=== PATIENT | female | born 1955 | race Caucasian/White ===

== ENCOUNTER → 2019-11-30 | Outpatient (CLI) | payer OTHER | LOC: SJCVC 10:30 | DX: I11.9 Hypertensive heart disease without heart failure (principal); R94.31 Abnormal electrocardiogram [ECG] [EKG]; I48.0 Paroxysmal atrial fibrillation; R00.1 Bradycardia, unspecified; G47.33 Obstructive sleep apnea (adult) (pediatric); E66.01 Morbid (severe) obesity due to excess calories; E78.00 Pure hypercholesterolemia, unspecified; Z90.49 Acquired absence of other specified parts of digestive tract; Z96.651 Presence of right artificial knee joint; Z79.899 Other long term (current) drug therapy ==

== ENCOUNTER → 2020-10-11 | Outpatient (CLI) | payer OTHER | LOC: SJCVC 11:06 | PROVIDERS: ATTEND Internal Medicine | DX: I48.0 Paroxysmal atrial fibrillation (principal); R94.31 Abnormal electrocardiogram [ECG] [EKG]; I45.4 Nonspecific intraventricular block; E78.5 Hyperlipidemia, unspecified; I10 Essential (primary) hypertension; E66.01 Morbid (severe) obesity due to excess calories; G47.33 Obstructive sleep apnea (adult) (pediatric); Z79.899 Other long term (current) drug therapy ==

== ENCOUNTER → 2021-04-11 | Outpatient (CLI) | payer OTHER | LOC: SJCVCIMAG 09:08 | PROVIDERS: ATTEND Internal Medicine | DX: I08.1 Rheumatic disorders of both mitral and tricuspid valves (principal); I11.9 Hypertensive heart disease without heart failure; R94.31 Abnormal electrocardiogram [ECG] [EKG]; I44.4 Left anterior fascicular block; I48.0 Paroxysmal atrial fibrillation; I77.819 Aortic ectasia, unspecified site; E78.5 Hyperlipidemia, unspecified; E66.01 Morbid (severe) obesity due to excess calories; G47.33 Obstructive sleep apnea (adult) (pediatric); E78.00 Pure hypercholesterolemia, unspecified; Z90.49 Acquired absence of other specified parts of digestive tract; Z79.899 Other long term (current) drug therapy; Z82.49 Family history of ischemic heart disease and other diseases of the circulatory system ==

== ENCOUNTER → 2021-04-22 | Outpatient (CLI) | payer OTHER | LOC: SJCVC 13:06 | PROVIDERS: ATTEND Internal Medicine Cardiovascular Disease | DX: R94.31 Abnormal electrocardiogram [ECG] [EKG] (principal); I45.2 Bifascicular block; I48.0 Paroxysmal atrial fibrillation; I10 Essential (primary) hypertension; E66.9 Obesity, unspecified; Z68.41 Body mass index [BMI] 40.0-44.9, adult; G47.33 Obstructive sleep apnea (adult) (pediatric); E78.00 Pure hypercholesterolemia, unspecified; Z90.49 Acquired absence of other specified parts of digestive tract; Z79.899 Other long term (current) drug therapy; Z82.49 Family history of ischemic heart disease and other diseases of the circulatory system ==

== ENCOUNTER → 2021-05-16 | Outpatient (CLI) | payer OTHER ==
[~2021-05-16] VITALS: Ht 170.2 cm; Wt 127.0 kg
[~2021-05-16] MED LIST: BENICAR40 MG PO; CHLORTHALIDONE25 MG PO; ELIQUIS5 MG PO; FOSAMAX 70 MG T70 MG PO; TAMBOCOR 100 M100 M1 PO; VITAMIN D350 MCG PO
[2021-05-16 09:09] VITALS: BP 150/76
--- NOTE | 2021-05-16 11:07 | TEE ---
[facility] Porfirio Hernandez [facility] [place] [address] TRANSESOPHAGEAL ECHOCARDIOGRAM Name: AUDREY ALVAREZ Room #: REG [facility]#: [id number] Admission: 05/16/21 Attend Phys: Tank Zaldivar MD, Discharge: Date of : 51 Report #: [id number] THIS REPORT FOR: cc: Soha Damico MD, Paula V. MD Lundgren, Craig H. MD [facility] ~ APPROVED REPORT Study performed: 05/16/2021 09:14:52 EXAM: Transesophageal Echocardiogram with Doppler Patient Location: Out-Patient Room #: 9 Status: routine BSA: 2.33 HR: 57 bpm BP: 142/82 mmHg Rhythm: Atrial Fibrillation Other Information Study Quality: Technically Difficult Indications Atrial Fibrillation Echo Enhancing Agent Indication: Rule out Shunt Agent(s) / Amount(s) Used: Agitated Saline 7 cc Procedure After obtaining informed consent, patient underwent transesophageal echo in the EP Lab. Type of Sedation : Conscious Sedation Sedation was administered by Nurse. Sedation start time: 942 Case end Time: 946 Sedation was achieved intravenously with: Versed (4 mg) Fentanyl (50 mcg) Transesophageal probe was inserted and advanced into esophagus without difficulty by Tank Zaldivar MD. Echo enhancement indication: R/O Septal defect. Echo enhancement agent administered: Agitated Saline The JAMEE was performed without complications. Throughout the procedure, the blood pressure, pulse oximetry, cardiac rhythm, and rate were monitored. [facility] [address] [address] TRANSESOPHAGEAL ECHOCARDIOGRAM Name: AUDREY ALVAREZ Room #: REG [facility].#: [id number] Admission: 05/16/21 Attend Phys: Tank Zaldivar, Discharge: Date of : 51 Report #: [id number] The patient tolerated the procedure without adverse effects. Recovery from conscious sedation was uneventful and vital signs were stable. Left Ventricle The left ventricle is normal size. There is normal LV segmental wall motion. There is normal left ventricular wall thickness. The left ventricular systolic function is normal. The left ventricular ejection fraction is within the normal range. LVEF is 60-65%. Right Ventricle The right ventricle is normal size. The right ventricular systolic function is normal. Atria The left atrium size is normal. No thrombus is visualized in the left atrium or appendage. Prominent pectinate muscle Small PFO with [id number] shunting The right atrium size is normal. Aortic Valve The aortic valve is normal in structure. Trace aortic regurgitation. There is no aortic valvular stenosis. Mitral Valve The mitral valve is normal in structure. Mild mitral regurgitation. No evidence of mitral valve stenosis. Tricuspid Valve The tricuspid valve is normal in structure. Trace tricuspid regurgitation. Pulmonic Valve The pulmonary valve is normal in structure. There is no pulmonic valvular regurgitation. Great Vessels The aortic root is normal in size. IVC is normal in size and collapses >50% with inspiration. Pericardium There is no pericardial effusion. <Conclusion> The left ventricular systolic function is normal. There is normal LV segmental wall motion. LVEF is 60-65%. [facility] [address] [place] [address] TRANSESOPHAGEAL ECHOCARDIOGRAM Name: AUDREY ALVAREZ Room #: REG [facility]#: [id number] Admission: 05/16/21 Attend Phys: Tank Zaldivar, Discharge: Date of : 51 Report #: [id number] The left atrium size is normal. No thrombus is visualized in the left atrium or appendage. Prominent pectinate muscle Small PFO with [id number] shunting The aortic valve is normal in structure. Trace aortic regurgitation, no stenosis. The mitral valve is normal in structure. Mild mitral regurgitation. There is no pericardial effusion. <ELECTRONICALLY SIGNED> By: Tank Zaldivar MD, FACC 05/16/21 1106 1106 05 Tank Zaldivar MD, FACC /INF
== END | disposition home or self-care (01) ==
LOC: CATH 07:37
PROVIDERS: ATTEND Internal Medicine
DX: I48.91 Unspecified atrial fibrillation (principal); I08.3 Combined rheumatic disorders of mitral, aortic and tricuspid valves; I48.92 Unspecified atrial flutter; I10 Essential (primary) hypertension; G47.33 Obstructive sleep apnea (adult) (pediatric); E66.9 Obesity, unspecified; Z98.890 Other specified postprocedural states; Z79.899 Other long term (current) drug therapy; Z79.01 Long term (current) use of anticoagulants

== ENCOUNTER → 2021-05-19 | Outpatient (CLI) | payer OTHER ==
[2021-05-19 10:10] LABS: HEMATOCRIT 43.3 % (37.0-47.0); HEMOGLOBIN 14.6 gm/dL (12.0-15.0); MCH 31.8 pg (26.0-34.0); MCHC 33.6 g/dL (28.0-37.0); MCV 94.5 fL (80.0-100.0); RBC 4.58 mil/uL (4.20-5.00); RDW 12.9 % (10.5-14.5); WBC 5.1 thou/uL (4.0-11.0)
[2021-05-19 10:26] LABS: ALBUMIN 3.6 g/dL (3.4-5.0); TOTAL BILIRUBIN 0.4 mg/dL (0.2-1.0); TOTAL PROTEIN 7.6 g/dL (6.4-8.2)
== END ==
LOC: CAT 08:49
PROVIDERS: ATTEND Internal Medicine Cardiovascular Disease
DX: Z01.818 Encounter for other preprocedural examination (principal); I48.91 Unspecified atrial fibrillation; M47.814 Spondylosis without myelopathy or radiculopathy, thoracic region

== ENCOUNTER 2021-05-21 06:22 | Observation (INO) | payer OTHER ==
[~2021-05-21] VITALS: Ht 170.2 cm; Wt 128.8 kg
[2021-05-21 06:57] VITALS: BP 131/72
[2021-05-21 07:38] LABS: ABSOLUTE NEUTROPHILS 2.8 thou/uL (1.4-8.2); BASOPHILS 0.8 % (0.0-2.0); EOSINOPHILS 2.1 % (0.0-3.0); HEMATOCRIT 41.7 % (37.0-47.0); LYMPHOCYTES 29.5 % (24.0-44.0); MCH 31.6 pg (26.0-34.0); MCHC 33.6 g/dL (28.0-37.0); MCV 93.9 fL (80.0-100.0); MONOCYTES 9.1 % (1.0-8.0); PLATELET COUNT 201 thou/uL (150-400); POLYS 58.5 % (36.0-66.0); RBC 4.44 mil/uL (4.20-5.00); RDW 12.9 % (10.5-14.5); WBC 4.8 thou/uL (4.0-11.0)
[2021-05-21 07:47] LABS: CALCIUM 9.2 mg/dL (8.5-10.1); POTASSIUM 3.6 mmol/L (3.5-5.1)
[2021-05-21 07:53] LABS: APTT 26.9 Seconds (24.5-32.8); INR 0.98; PROTIME 10.7 Seconds (10.5-12.1)
[2021-05-21 07:54] LABS: ALBUMIN 3.6 g/dL (3.4-5.0); TOTAL BILIRUBIN 0.4 mg/dL (0.2-1.0); TOTAL PROTEIN 7.6 g/dL (6.4-8.2)
[2021-05-21 18:38] VITALS: BP 136/83
[2021-05-21 19:57] VITALS: BP 107/65
[2021-05-22 03:57] VITALS: BP 117/67
--- NOTE | 2021-05-22 07:48 | NUR ---
ASSUMED CARE OF PT AT 1900, PT IS A/O X4. ASSESSMENT COMPLETED NOTED. PT HAS RIGHT GROIN SITE INCISION TO BE MONITORED PER PROTOCOL. 2250 DRESSING FOUND TO HAVE INCREASED DRAINAGE, DRESSING CHANGED AND REASSESED. 0300 DRESSING NOTED TO HAVE SEROUS DRAINAGE, PRESSURE HELD, DRESSING CHANGED AND PT PLACED ON BED REST AND INSTRUCTED TO IMMOBILIZE THE LEFT LEG. NO REMAINING ISSUES NOTED. WILL CONTINUE TO WORK TOWARDS PT'S POC.
[2021-05-22 08:00] VITALS: BP 111/65
[2021-05-22 10:55] VITALS: BP 111/65
--- NOTE | 2021-05-22 11:08 | NUR ---
ASSESSMENT CHARTED. PT ALERT AND ORIENTED. VSS. DENIED HAVING PAIN OR DISCOMFORT. RIGHT GROIN INCISION C/D/I. NO HEMATOMA NOTED. SEEN BY DR. AREVALO. ORDERS GIVEN TO DISCHARGE PT TO HOME. DISCHARGE INSTRUCTIONS GIVEN TO PT AND THE . THEY BOTH VERBERLISED UNDERSTANDING.
== END 2021-05-22 11:34 | disposition home or self-care (01) ==
LOC: CATH → 2N 18:23
PROVIDERS: ADMIT Internal Medicine Cardiovascular Disease; ATTEND Internal Medicine Cardiovascular Disease
DX: I48.0 Paroxysmal atrial fibrillation (principal); I10 Essential (primary) hypertension; E66.9 Obesity, unspecified; G47.33 Obstructive sleep apnea (adult) (pediatric); J98.4 Other disorders of lung; Z68.41 Body mass index [BMI] 40.0-44.9, adult
CPT/HCPCS: 62110; 62900; 70005

== ENCOUNTER → 2021-07-30 | Outpatient (CLI) | payer OTHER | LOC: SJCVC 10:38 | PROVIDERS: ATTEND Internal Medicine | DX: R94.31 Abnormal electrocardiogram [ECG] [EKG] (principal); I45.4 Nonspecific intraventricular block; I48.0 Paroxysmal atrial fibrillation; E78.5 Hyperlipidemia, unspecified; I10 Essential (primary) hypertension; G47.33 Obstructive sleep apnea (adult) (pediatric); E66.01 Morbid (severe) obesity due to excess calories; E78.00 Pure hypercholesterolemia, unspecified; Z82.49 Family history of ischemic heart disease and other diseases of the circulatory system; Z79.899 Other long term (current) drug therapy ==

== ENCOUNTER → 2021-08-12 | Outpatient (CLI) | payer OTHER | LOC: SJCVC 10:18 | PROVIDERS: ATTEND Internal Medicine Cardiovascular Disease | DX: R94.31 Abnormal electrocardiogram [ECG] [EKG] (principal); I44.4 Left anterior fascicular block; I48.0 Paroxysmal atrial fibrillation; E78.5 Hyperlipidemia, unspecified; I10 Essential (primary) hypertension; I48.3 Typical atrial flutter; E66.01 Morbid (severe) obesity due to excess calories; G47.33 Obstructive sleep apnea (adult) (pediatric); R07.9 Chest pain, unspecified; Z79.899 Other long term (current) drug therapy ==